=== PATIENT | male | born 1955 | race Caucasian/White ===

== ENCOUNTER 2020-12-01 13:30 | Outpatient (CLI) | payer MEDICARE, MEDICAID | END 2020-12-01 23:59 | disposition home or self-care (01) | LOC: LAB.R 13:30 | PROVIDERS: ATTEND Family Medicine | DX: J02.9 Acute pharyngitis, unspecified (principal); Z20.822 Contact with and (suspected) exposure to COVID-19 | CPT/HCPCS: 87070; 87275; 87276; U0004 ==

== ENCOUNTER 2021-03-19 13:34 | Outpatient (CLI) | payer MEDICARE, MEDICAID ==
--- NOTE | 2021-03-19 17:48 | XRAY Report ---
PROCEDURE: Ribs 2 View LT INDICATIONS: L RIB PX TECHNIQUE: 3 views of the left ribs were acquired. COMPARISON: None FINDINGS: Surgical changes and devices: None. Bones and chest wall: No fractures or dislocations. No suspicious bony lesions. Overlying soft tis sues appear unremarkable. Lungs and pleura: The visualized lung appears clear. No pleural effusions or pneumothorax are visib le. IMPRESSION: No evidence of displaced right left fracture. Reviewed by: Clifton Carias MD on 03/19/2021 5:46 PM PDT Approved by: Clifton Carias MD on 03/19/2021 5:46 PM PDT Station ID: [id number]
== END 2021-03-19 23:59 | disposition home or self-care (01) ==
LOC: DI.N 13:34
PROVIDERS: ATTEND Family Medicine
DX: R07.81 Pleurodynia (principal)